=== PATIENT | female | born 1970 | race Caucasian/White ===

== ENCOUNTER 2016-04-07 18:42 | Emergency (ER) | payer OTHER ==
[2016-04-07 20:06] VITALS: BP 129/71
--- NOTE | 2016-04-07 21:22 | UC ---
Throat Pain/Nasal Shahriar HPI - HPI Summary HPI Summary: The patient comes in today for: 1. Burning in mouth and throat: Onset: 2 days ago with it worsening yesterday. Palliative/provocative: Worse with eating or drinking. Soda wagner. Quality: Burning. Region: Mouth. Severity: 5/10 Time: Constant. Associated symptoms: Previous disease: She has had this before about 2 years ago when she was only on Ventolin. She has been on Advair 500/50 for about a year. She states that she was previously treated with an antibiotic which she took every day. She is not immunesuppressed. * - History of Current Complaint Chief Complaint: UCGI Stated Complaint: THRUSH Time Seen by Provider: 04/07/16 21:16 Hx Obtained From: Patient Hx Last Menstrual Period: 03/20/15 ?: No - Allergies/Home Medications Allergies/Adverse Reactions: Allergies Allergy/AdvReac Type Severity Reaction Status Date / Time Bee Venom Allergy swelling, Verified 03/11/16 11:46 throat closes PMH/Surg Hx/FS Hx/Imm Hx Previously Healthy: No - Chronic low back pain on MS and oxycodone. Endocrine History Of: Denies: Diabetes, Thyroid Disease, Hyperthyroidism, Hypothyroidism, Dyslipidemia Cardiovascular History Of: Denies: Cardiac Disorders, Hypertension, Pacemaker/ICD, Myocardial Infarction , Congestive Heart Failure, Atrial Fibrillation, Deep Vein Thrombosis, Bleeding Disorders Respiratory History Of: Reports: COPD, Asthma - COLD INDUCED Denies: Bronchitis, Pneumonia, Pulmonary Embolism GI/ History Of: Denies: Gastroesophageal Reflux, Ulcer, Gastrointestinal Bleed, Gall Bladder Disease, Kidney Stones, Diverticulitis, Renal Disease, Urosepsis Neurological History Of: Denies: TIA, CVA, Dementia, Seizures, Migraine Psychological History Of: Reports: Anxiety, Depression, Bipolar Disorder Denies: Schizophrenia, Post Traumatic Stress Disorder Cancer History Of: Denies: Lung Cancer, Colorectal Cancer, Breast Cancer, Cervical Cancer Other History Of: Negative For: HIV, Hepatitis B, Hepatitis C, Anticoagulant Therapy - Surgical History Surgical History: Yes Surgery Procedure, Year, and Place: HERNIA- A CHILD, TUBAL LIGATION. rt CARPAL TUNNEL - Family History Known Family History: Positive: Cardiac Disease, Hypertension, Diabetes - Social History Occupation: Employed Full-time Alcohol Use: None Substance Use Type: None Smoking Status (MU): Light Every Day Tobacco Smoker Type: Cigarettes Amount Used/How Often: less than 1/2 ppd Length of Time of Smoking/Using Tobacco: 30 YEARS Have You Smoked in the Last Year: Yes Household Exposure Type: Cigarettes - Immunization History Most Recent Influenza Vaccination: 2015 fall Most Recent Tetanus Shot: up to date Review of Systems Constitutional: Negative Skin: Negative Eyes: Negative ENT: Sore Throat Respiratory: Negative Cardiovascular: Negative Gastrointestinal: Negative Genitourinary: Negative All Other Systems Reviewed And Are Negative: Yes Physical Exam Triage Information Reviewed: Yes Appearance: Well-Appearing, No Pain Distress, Well-Nourished Vital Signs: Initial Vital Signs Temp 96.0 F 04/07/16 20:03 Pulse 69 04/07/16 20:03 Resp 18 04/07/16 20:03 BP 129/71 04/07/16 20:03 Pulse Ox 99 04/07/16 20:03 Vital Signs Reviewed: Yes Eyes: Positive: Conjunctiva Clear. Negative: Discharge ENT: Positive: Hearing grossly normal, Other: - She is edentulous and there is no typical white, cake-like thrush. At worse, there may be the erythematous form, but the oral mucosa appeared normal.. Negative: Pharyngeal erythema, Nasal congestion, Nasal drainage, TM bulging, TM dull, TM red, Tonsillar swelling, Tonsillar exudate Dental: Negative: Gross Decay/Caries @, Dental Fracture @ Neck: Positive: Supple, Nontender, No Lymphadenopathy. Negative: Nuchal Rigidity Respiratory: Positive: Chest non-tender, Lungs clear, No respiratory distress, No accessory muscle use. Negative: Crackles, Wheezing Cardiovascular: Positive: RRR, No Murmur Abdomen Description: Positive: Nontender, No Organomegaly, Soft. Negative: Distended, Guarding Musculoskeletal: Positive: Strength Intact, ROM Intact, No Edema Neurological: Positive: Alert, Muscle Tone Normal. Negative: Lethargic Psychological: Positive: Age Appropriate Behavior, Consolable Skin: Negative: rashes, breakdown Throat Pain/Nasal Course/Dx - Differential Dx/Diagnosis Differential Diagnosis/HQI/PQRI: Laryngitis, Pharyngitis, Tonsillitis Provider Diagnoses: Erythematous john stomatitis Discharge - Discharge Plan Condition: Stable Disposition: HOME Patient Education Materials: Oral Candidiasis (ED) Referrals: Colby Hunter MD [Primary Care Provider] - 1 Week (Please see your primary care provider in a week to see how well you are doing. If you get worse, please be seen sooner in the ER or through us.)
[2016-04-07] MEDS ORDERED: Lidocaine 2% VISCOUS* 15 ML UDC SWISH SPIT ONE (21:32)
== END 2016-04-07 21:44 | disposition home or self-care (01) ==
LOC: UCEAST 18:42
DX: B37.0 Candidal stomatitis (principal); M54.5 Low back pain; G89.29 Other chronic pain; J44.9 Chronic obstructive pulmonary disease, unspecified; J45.909 Unspecified asthma, uncomplicated; F17.210 Nicotine dependence, cigarettes, uncomplicated
CPT/HCPCS: 99212; G0463

== ENCOUNTER → 2016-09-19 16:15 | Emergency (ER) | payer SELFPAY ==
[~2016-09-19 16:15] MED LIST: NS 0.9% 1000 ML* 1,000 ML IV SCH
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
[2016-09-19 21:18] VITALS: BP 128/80
== END | disposition home or self-care (01) ==
LOC: ED 16:15
DX: M54.5 Low back pain (principal); V89.2XXA Person injured in unspecified motor-vehicle accident, traffic, initial encounter; F17.210 Nicotine dependence, cigarettes, uncomplicated; Y93.9 Activity, unspecified; Y92.9 Unspecified place or not applicable
CPT/HCPCS: 70450; 71250; 72125; 72131; 74176; 96360; 99283

== ENCOUNTER 2016-10-05 19:43 | Emergency (ER) | payer OTHER ==
[2016-10-05 19:53] VITALS: BP 113/76
--- NOTE | 2016-10-05 21:33 | RAD ---
HISTORY: Left-sided neck pain COMPARISONS: CT dated September 19, 2016 VIEWS: 7, Frontal, swimmer's, lateral, open-mouth odontoid, and bilateral oblique views of the cervical spine. FINDINGS: The cervical spine is visualized from the skull base through T1. ALIGNMENT: There is straightening with mild reversal of the normal cervical lordosis. VERTEBRAL BODIES: The odontoid process is intact. The atlantoaxial intervals are symmetric. There is mild anterolateral marginal osteophyte formation. JOINTS: There is no subluxation or dislocation. The facet joints are unremarkable. There is no osseous neural foraminal narrowing on the oblique views INTERVERTEBRAL DISCS: There is diffuse loss of intervertebral disc height. SOFT TISSUE: The prevertebral soft tissues are normal. OTHER: The skull base is normal. The lung apices are clear. IMPRESSION: STRAIGHTENING WITH REVERSAL OF THE NORMAL CERVICAL LORDOSIS. MILD DEGENERATIVE DISC DISEASE. NO ACUTE OSSEOUS INJURY OF THE CERVICAL SPINE
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
== END 2016-10-05 21:45 | disposition home or self-care (01) ==
LOC: UCEAST 19:43
DX: S16.1XXA Strain of muscle, fascia and tendon at neck level, initial encounter (principal); V49.60XA Unspecified car occupant injured in collision with unspecified motor vehicles in traffic accident, initial encounter; Z91.030 Bee allergy status; F17.210 Nicotine dependence, cigarettes, uncomplicated
CPT/HCPCS: 72050; 99211; G0463

== ENCOUNTER 2017-01-20 17:47 | Emergency (ER) | payer OTHER ==
[2017-01-20 19:13] VITALS: BP 121/69
--- NOTE | 2017-01-20 20:12 | UC ---
Throat Pain/Nasal Shahriar HPI - HPI Summary HPI Summary: Pt presents with a hoarse voice. She tells me that 5 days ago she developed a mild ST and hoarse voice. She has been treating herself conservatively with voice rest and fluids. Today she says that her throat doesn't hurt, but her hoarseness has only mildly improved. She denies fever, chills, cough, SOB, chest pain, abdominal pain, N/V/D/C - History of Current Complaint Chief Complaint: UCRespiratory Stated Complaint: THROAT Time Seen by Provider: 01/20/17 20:02 Hx Obtained From: Patient Hx Last Menstrual Period: AUGUST 2016 Onset/Duration: Gradual Onset - Allergies/Home Medications Allergies/Adverse Reactions: Allergies Allergy/AdvReac Type Severity Reaction Status Date / Time Bee Venom Allergy swelling, Verified 01/20/17 19:13 throat closes Home Medications: Home Medications Albuterol 2.5MG/3ML (0.083%)* [Ventolin 2.5 MG/3 ML NEB.KARINA*] PRN 01/20/17 [ History] Albuterol HFA INHALER* [Ventolin HFA Inhaler*] PRN 01/20/17 [History] Antidepressant* 1 tab PO DAILY 01/20/17 [History Confirmed 01/20/17] Antidepressant* 1 tab PO DAILY 01/20/17 [History Confirmed 01/20/17] Cholecalciferol [Vitamin D] 2,000 unit PO DAILY 01/20/17 [History Confirmed 12/27] Methotrexate TAB* 01/20/17 [History] guaiFENesin ER TAB [Mucinex*] PRN 01/20/17 [History] tiZANidine TAB* [Zanaflex TAB*] PRN 01/20/17 [History Confirmed 01/20/17] PMH/Surg Hx/FS Hx/Imm Hx - Additional Past Medical History Additional PMH: Chronic Pain Respiratory History: COPD Other History Of: Negative For: HIV, Hepatitis B, Hepatitis C, Anticoagulant Therapy - Surgical History Surgical History: Yes Surgery Procedure, Year, and Place: HERNIA- A CHILD, TUBAL LIGATION. rt CARPAL TUNNEL - Family History Known Family History: Positive: Cardiac Disease, Hypertension, Diabetes - Social History Occupation: Employed Full-time Lives: With Family Alcohol Use: None Substance Use Type: None Smoking Status (MU): Current Every Day Smoker Type: Cigarettes Amount Used/How Often: 1/4 PPD Length of Time of Smoking/Using Tobacco: 30 YEARS Have You Smoked in the Last Year: Yes Household Exposure Type: Cigarettes Cessation Counseling: Counseled 3+Min - 10 Min - Immunization History Most Recent Influenza Vaccination: fall Most Recent Tetanus Shot: up to date Review of Systems Constitutional: Negative Skin: Negative Eyes: Negative ENT: Other - Hoarseness Respiratory: Negative Cardiovascular: Negative All Other Systems Reviewed And Are Negative: Yes Physical Exam Triage Information Reviewed: Yes Appearance: Well-Appearing, Well-Nourished Vital Signs: Initial Vital Signs Temp 98.1 F 01/20/17 19:09 Pulse 76 01/20/17 19:09 Resp 16 01/20/17 19:09 BP 121/69 01/20/17 19:09 Pulse Ox 100 01/20/17 19:09 Vital Signs Reviewed: Yes ENT: Positive: Hearing grossly normal, Pharynx normal, TMs normal, Hoarse voice , Uvula midline. Negative: Pharyngeal erythema, Nasal congestion, Nasal drainage, TM bulging, TM dull, TM red, Tonsillar swelling, Tonsillar exudate, Muffled voice, Sinus tenderness Neck: Positive: Supple, Nontender, No Lymphadenopathy Respiratory: Positive: Chest non-tender, Lungs clear, Normal breath sounds, No respiratory distress, No accessory muscle use Cardiovascular: Positive: RRR, No Murmur, Pulses Normal Neurological: Positive: Alert Psychological: Positive: Age Appropriate Behavior Throat Pain/Nasal Course/Dx - Course Course Of Treatment: Laryngitis. 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 There has been some evidence that antibiotic therapy and/or steroid therapy may shorten the course of hoarseness - in addition to voice rest. Will try a short course of prednisone and advise as much voice rest as possible. - Differential Dx/Diagnosis Differential Diagnosis/HQI/PQRI: Laryngitis, Mononucleosis, Pharyngitis, Tonsillitis, URI Provider Diagnoses: Laryngitis. Hoarseness Discharge - Discharge Plan Condition: Stable Disposition: HOME Prescriptions: predniSONE TAB* [Deltasone TAB*] 30 mg PO DAILY #12 tab Patient Education Materials: Laryngitis (ED) Referrals: Colby Hunter MD [Primary Care Provider] - Additional Instructions: If you develop a fever, SOB, chest pain, new or worsening symptoms - please call your PCP or go to the ED. Try salt water gargles and tea with honey to soothe your throat and help with any discomfort.
== END 2017-01-20 20:23 | disposition home or self-care (01) ==
LOC: UCEAST 17:47
DX: J04.0 Acute laryngitis (principal); J44.9 Chronic obstructive pulmonary disease, unspecified; F17.210 Nicotine dependence, cigarettes, uncomplicated
CPT/HCPCS: 99212; G0463

== ENCOUNTER 2017-03-22 00:50 | Emergency (ER) | payer OTHER ==
--- OUTSIDE RECORDS SUMMARY | 2017-03-22 01:15 | XMS REPORT ---
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 Coty Oliver [facility] (O) Ind. PayID: [id number] [address] [address] [place] [address] Problems Date Description Provider Status Onset: 03/18/2016 Heavy cigarette smoker Manuel Carpenter RPA-C Active Onset: 03/18/2016 Moderate persistent asthma Manuel Carpenter RPA-C Active Onset: 03/18/2016 Allergic rhinitis Manuel Carpenter RPA-C Active Onset: 03/18/2016 Allergic rhinitis due to pollen Manuel Carpenter RPA-C Active Social History Type Date Description Comments Cigarette Use Light tobacco smoker (10 or fewer cigarettes/day) Smoking Patient is a current smoker, smokes every day 1 ppd Allergies, Adverse Reactions, Alerts Date Description Reaction Status Severity Comments 03/21/2017 NKDA active Medications Medication Date Status Form Strength Qnty SIG Indications Ordering Provider Albuterol 04/15 Active Nebulizer (2.5mg/3M 225ml 1 vial every Christopher Sulfate /2016 L) 0.083% 4h as needed Yang Judd MD Ventolin HFA 03/18 Active Aerosol 108(90Bas 8gm inhale 2 J45.40 Jayden /Sebastian e) puffs by ALINE Jackson mcg/Act inhalation route every 4 hours as needed Azelastine 03/18 Active Solution 0.15% 30ml 2 sprays J30. Jayden, COLBY (Nasal) each nostril ALINE Jackson once daily Fluticasone 03/18 Active Suspension 50mcg/Act 1unit spray 2 J30. Jayden, Propionate s sprays in ALINE Jackson each nostril daily immediately after azelastine nasal spray Cetirizine 03/18 Active Tablets 10mg 30tab 1 tab by Tomi30COLBY Kebede s mouth once ALINE Jackson daily as needed Zyrtec 02/06 Active Tablets 10mg 30tab Take 1 Jayden, Allergy s Tablet By ALINE Jackson Mouth Every Evening Morphine Active Tablets ER 15mg tid Unknown Sulfate ER / Epipen 2-Juan Active Solution 0.3mg/0.3 as directed Unknown Auto-Inject ML Trazodone Active Tablets 150mg take 1 Unknown HCL /0000 tablet by oral route 3 times a day Ambien Active Tablets 10mg 1 tab at Unknown /0000 night prn Oxycodone Active Tablets 10mg take 1 Unknown HCL /0000 tablet (10 mg) by oral route every 6 hours Meclizine Active Tablets 25mg 1 tab 3x a Unknown HCL /0000 day PO prn Tizanidine Active Capsules 6mg Unknown HCL /0000 Ventolin HFA 02/07 Hx Aerosol 108(90Bas 8gm Inhale 2 e) Puffs By Yang Judd MD - mcg/Act Mouth Every 03/18 4 Hours Needed Epipen 2-Juan 08/29 Hx Solution 0.3mg/0.3 inject 0.3 Auto-Inject ML milliliter - (0.3 mg) by 03/18 intramuscula r route once as needed for anaphylaxis for 99 days Fluticasone 08/29 Hx Suspension 50mcg/Act spray 2 Unknown sprays (100 - mcg) in each 03/18 nostril intranasal route once daily Latuda 00 Hx Tablets 40mg take 1 Unknown /0000 tablet by - oral route 03/18 Lorzone Hx Tablets 375mg take 1 Unknown /0000 tablet by - oral route 2 03/21 times a day /2018 Vital Signs Date Vital Result Comment 03/21/2017 BP Systolic 114 mmHg BP Diastolic 79 mmHg Height 65 inches 5'5" Weight 163.00 lb BMI (Body Mass Index) 27.1 kg/m2 Heart Rate 101 /min Respiratory Rate 22 /min Body Temperature 98.5 F O2 % BldC Oximetry 98 % 03/18/2016 BP Systolic 118 mmHg BP Diastolic 78 mmHg Height 65 inches 5'5" Weight 159.00 lb BMI (Body Mass Index) 26.5 kg/m2 Heart Rate 96 /min Respiratory Rate 16 /min Body Temperature 98.3 F O2 % BldC Oximetry 96 % Results Description No Information Procedures Date CPT Code Description Status 03/18/2016 44339 Nitric Oxide Gas Determination Completed 03/18/2016 74813 Bronchodilation Responsiveness Spirometry Pre/Post Completed Bronchodil Adm Encounters Type Date Location Provider CPT E/M Dx Office Visit 03/18/2016 10:30a aMnuel Cronin, RPA-C 88235 J45.40 J30.1 J30.89 Z72.0 Plan of Care 03/18/2016 - Manuel Carpenter, JAYJAY-CJ45.40 Moderate persistent asthma, uncomplicatedNew Medication:Ventolin HFA 108(90 Base) mcg/ActComments:Continue Advair from PCP as directed. Use Ventoln as needed.Quit smoking.J30.1 Allergic rhinitis due to smsuzlP30.89 Other allergic rhinitisNew Medication:Azelastine HCL (Nasal) 0.15 %Fluticasone Propionate 50 mcg/ActCetirizine HCL 10 mgComments: Continue all prescribed medications as directed. Use the azelastine nasal spray immediately before the fluticasone nasal spray every evening.Z72.0 Tobacco useComments:Make every effort to quit smoking.Follow up:1 year, sooner as needed
--- OUTSIDE RECORDS SUMMARY | 2017-03-22 01:15 | XMS REPORT ---
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 PayID: [id number] [address] [address] [place] [address] Problems Date Description Provider Status Onset: 03/21/2017 Posterior rhinorrhea Joceline Henderson Onset: 03/18/2016 Heavy cigarette smoker Manuel Carpenter [...] (2.5mg/3M 225ml 1 vial every Christopher Sulfate /2017 L) 0.083% 4h as needed Yang Judd MD Ventolin HFA 03/18 Active Aerosol 108(90Bas 18gm Inhale 2 J45.40 Christopher /2017 e) puffs by Yang Judd MD mcg/Act inhalation route Q4 hours as needed Azelastine 03/18 Active Solution 0.15% 30ml 2 sprays J30. COLBY Carpenter (Nasal) each nostril ALINE Jackson once daily Fluticasone 03/18 Active Suspension 50mcg/Act 1unit spray 2 J30. Jayden Propionate s sprays in ALINE Jackson each nostril daily immediately after azelastine nasal spray Cetirizine 03/18 Active Tablets 10mg 30tab 1 tab by J30.COLBY Lewis s mouth once ALINE Jackson daily as needed Zyrtec 02/06 Active Tablets 10mg 30tab Take 1 Jayden s Tablet By ALINE Jackson Mouth Every Evening Morphine 00 Active Tablets ER 15mg tid Unknown Sulfate ER / Epipen 2-Juan Active Solution 0.3mg/0.3 as directed Auto-Inject ML Trazodone Active Tablets 150mg take 1 Unknown HCL /0000 tablet by oral route 3 times a day Ambien 00 Active Tablets 10mg 1 tab at Unknown [...] 03/18 nostril intranasal route once daily Latuda Hx Tablets 40mg take 1 Unknown /0000 tablet by - oral route 03/18 Lorzone Hx Tablets 375mg take 1 Unknown /0000 tablet by - oral route 2 03/21 times a day Vital Signs Date Vital Result Comment 03/21/2017 [...] Information Procedures Date CPT Code Description Status 03/21/2017 61291 Nitric Oxide Gas Determination Completed 03/21/2017 41539 Bronchodilation Responsiveness Spirometry Pre/Post Completed Bronchodil Adm 03/18/2016 78744 Nitric Oxide Gas Determination Completed 03/18/2016 09686 Bronchodilation Responsiveness Spirometry Pre/Post Completed Bronchodil Adm Encounters Type Date Location Provider CPT E/M Dx Office Visit 03/21/2017 10:00a Morrice ALINE Henderson 61261 J30.1 J30.89 R09.82 J45.40 Office Visit 03/18/2016 10:30a Manuel Cronin RPA-C 68854 J45.40 J30.1 J30.89 Z72.0 Plan of Care Future Appointment(s):03/28/2017 10:00 am - Injection 1 at [facility]/19/2017 10: 00 am - ALINE Henderson at [facility]/21/2017 - Marianne Baron RPA-CJ30.1 Allergic rhinitis due to pollenComments:Patient with poorly controlled allergic rhinitis and post nasal drip. I have discussed the importance of using allergy medications daily. I agree with current treatment plan of Fluticasone, Azelastine and Cetirizine as prescribed by her primary. I have discussed the potential risks, benefits and schedule requirements of immunotherapy and patient would like to pursue this treatment option. Continue medications as prescribed. Continue environmental controls in the home. Initial allergy injection scheduled for 03/28/2017.Follow up:6 months.J30.89 Other allergic nnduhkwoO92.82 Postnasal dripJ45.40 Moderate persistent asthma, uncomplicatedComments:Asthma has been stable. Today's PFT is within normal limits. Exhaled nitric oxide level is also normal at 19ppb. Patient was recently switched from Advair to Breo due to insurance denial. Continue Yleu151/ 25 as prescribed. Continue Ventolin as needed for breakthrough asthma symptoms. I have discussedthe importance of smoking cessation, especially when you have asthma. Patient states she has a lot of stress and is not ready to quit at this time.Follow up:6 months - w/PFT and NIOX prior to visit
[2017-03-22] MEDS ORDERED: Methocarbamol TAB* 500 MG PO ONE (01:18)
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
[2017-03-22 01:41] VITALS: BP 106/81
== END 2017-03-22 01:41 | disposition home or self-care (01) ==
LOC: ED 00:50
DX: M54.2 Cervicalgia (principal); G89.29 Other chronic pain; M79.1 Myalgia; F17.210 Nicotine dependence, cigarettes, uncomplicated
CPT/HCPCS: 99282; A9270-GY

== ENCOUNTER 2018-12-28 08:42 | Day surgery (SDC) | payer OTHER ==
[~2018-12-28 08:42] MED LIST changes: +Buffered Lidocaine 1% SYRIN* 1 ML/SYRINGE INTRADERM ONE; +Dexamethasone IV* 4 MG/ML 1 ML (4 MG) IV SLOW PU ONE; +Dexamethasone IV* 4 MG/ML 1 ML (4 MG) ONE; +Famotidine IV* 10 MG/ML 2 ML (20 mg) IV ONE; +Famotidine IV* 10 MG/ML 2 ML (20 mg) ONE; +Lactated Ringers 1000 ML Bag* 1,000 ML IV SCH; -NS 0.9% 1000 ML* 1,000 ML IV SCH
[2018-12-28] MEDS ORDERED: ceFAZolin 2 GM PREMIX in ORs 2 GM/50 ML BAG ONE (08:53)
[2018-12-28] MEDS ORDERED: Ropivacaine 0.2% * 2 MG/ML VIAL ONE (09:36)
[2018-12-28] MEDS ORDERED: Lidocaine 1% w EPI 1:200,000* SDV 30 ML VIAL ONE (09:36)
[2018-12-28] MEDS ORDERED: fentaNYL* 50 MCG/ML 2 ML VIAL (100 MCG VIAL) ONE (09:39)
[2018-12-28] MEDS ORDERED: Midazolam* 1 MG/ML 2 ML VIAL (2 MG) ONE (09:39)
[2018-12-28] MEDS ORDERED: Propofol* 10 MG/ML 20 ML BTL ONE (09:40)
[2018-12-28] MEDS ORDERED: Lidocaine 2% PF * 5 ML VIAL ONE (09:41)
[2018-12-28] MEDS ORDERED: Ketorolac INJ* 30 MG/ML 1 ML VIAL ONE (10:23)
[2018-12-28] MEDS ORDERED: Ondansetron INJ* 2 MG/ML VIAL ONE (10:23)
[2018-12-28 11:49] VITALS: BP 123/76
--- NOTE | 2018-12-28 15:26 | OP ---
DATE OF OPERATION: 12/28/18 [facility] DATE OF : 72 SURGEON: Cornel Gomez MD PIT RECORDER: None available. PRE-OP DIAGNOSIS: Left knee chondrosis with synovitis. POST-OP DIAGNOSES: 1. Left knee chondrosis with synovitis. 2. Lateral meniscal fraying. OPERATIVE PROCEDURE: Left knee arthroscopy with: 1. Partial lateral meniscectomy. 2. Synovectomy of the anterior, medial, and lateral compartments. 3. Chondroplasty of the patella. COMPLICATIONS: None. ESTIMATED BLOOD LOSS: Minimal. TOURNIQUET TIME: Zero minutes. INDICATIONS: Coty Garay is a 48-year-old female with left knee pain and stiffness refractory to conservative management. She has elected to proceed with surgical treatment. Risks and benefits were discussed at length which included but are not limited to bleeding; infection; damage to nerves, vessels, surrounding structures; wound nonhealing; persistent pain; need for further surgery; scarring; stiffness; incomplete relief of symptoms; risks of anesthesia. DESCRIPTION OF PROCEDURE: The patient was greeted in the preoperative area by the attending surgeon. Correct extremity was marked. Consent was confirmed. The patient was brought back to the operating suite and was placed in the supine position on the operating table. She then underwent general anesthesia and LMA intubation, after which she was appropriately positioned on the operating table where a lateral post was positioned. An unsterile tourniquet was placed high on the proximal thigh. The left leg was then prepped and draped in the usual sterile fashion beginning with chlorhexidine soap, scrub, and alcohol wipe, and a final prep with ChloraPrep. After appropriate surgical pause indicating side, site, procedure, and administration of antibiotics, the knee was intra-articularly injected with 1% lidocaine with epi. The anterolateral portal was made sharply with an 11- blade. The scope was introduced into the joint and the joint was examined. There was abundant synovitis that was present. There were bands of scar tissue and plica spanning the medial to lateral and inferiorly about the prepatellar area. The bashir and biters were actually used to debride this back. There were discrete layers where this was present. Electrocautery device was used to maintain hemostasis. The ACL and PCL were intact. The medial compartment was examined. The medial meniscus was intact. The medial femoral condyle and medial plateau in the weightbearing zone had grade 0 to 1 changes. There was a small focal defect in the medial condyle that was present in extension that was about 3 mm x 3 mm. There was a grade 2 to 3 lesion. The flaps were debrided slightly. The lateral compartment had similar area of chondrosis on the far lateral aspect with grade 2 changes, but the rest of the condyle had grade 0 to 1 changes. The lateral compartment was examined. There was an unstable flap about the posterior root. This was debrided back using the shaver. The remainder of the meniscus was intact. The knee was placed in full extension. There were areas of grade 2 changes in the medial aspect of the patella. The trochlea had 0 to 1 changes. The bashir were used to debride this back. The plica and synovitis were then removed with the bashir and the electrocautery device to maintain hemostasis. The gutters were able to be visualized and free of any loose debris. The wound was then thoroughly irrigated. Final images were obtained. The wounds were copiously irrigated with sterile saline. The portals were closed with 3-0 nylon. The wound was intra- articularly and superficially injected with 0.2% ropivacaine. Sterile dressings were applied as well as a Cryo/Cuff. She was awoken from anesthesia and transferred to the PACU in stable condition. POSTOPERATIVE PLAN: She will be weightbearing as tolerated. Range of motion as tolerated. Discharged on pain medication. DVT prophylaxis was considered, but deferred due to no previous personal or family history. I will see the patient back in 10 to 14 days. [id number]/[facility] #: [id number] MIGUEL ANGEL
== END 2018-12-28 11:34 | disposition home or self-care (01) ==
LOC: OREAST 08:42
PROVIDERS: ATTEND Orthopaedic Surgery
DX: M65.862 Other synovitis and tenosynovitis, left lower leg (principal); M22.42 Chondromalacia patellae, left knee; M17.12 Unilateral primary osteoarthritis, left knee; J44.9 Chronic obstructive pulmonary disease, unspecified; F32.9 Major depressive disorder, single episode, unspecified; F41.9 Anxiety disorder, unspecified; M79.7 Fibromyalgia; G43.909 Migraine, unspecified, not intractable, without status migrainosus; F17.210 Nicotine dependence, cigarettes, uncomplicated
CPT/HCPCS: J0690; J1100; J1885; J2001; J2250; J2405; J2704; J2795; J3010

== ENCOUNTER 2019-05-22 09:46 | Emergency (ER) | payer SELFPAY ==
--- OUTSIDE RECORDS SUMMARY | 2019-05-22 10:04 | XMS REPORT | Continuity of Care Document ---
:1970 External Reference #:[id number] Author Name Joe Tan MD (transmitted by agent of provider Conchis Soto) Address [address] [place] [address] Care Team Providers Name Role Phone Session Juan Alberto DILLARD Care Team Information Perfumer [phone] Problems Active Problems Provider Date Hypertrophy of nasal turbinates Joe Tan MD Onset: 12/10/2010 Dysfunction of eustachian tube Joe Tan MD Onset: 12/10/2010 Social History Type Date Description Comments Sex Unknown Tobacco Use Start: Unknown Current Cigarette Smoker 1/2 Pack for 28 years Daily Tobacco Use Start: Unknown Never Smoked Cigars Tobacco Use Start: Unknown Never Smoked A Pipe Smokeless Tobacco Never Used Smokeless Tobacco ETOH Use Currently rarely consumes alcohol Allergies, Adverse Reactions, Alerts Description No Known Drug Allergies Medications Active Medications SIG Qnty Indications Ordering Provider Date Ventolin HFA 1-2 puffs every 2units Unknown 4 hours as 108(90Base) mcg/ac needed for Aerosol shortness of breathe use with spacer Duloxetine HCL Once a day Tacos Bean M.D. 30mg Caps DR Aki HERNANDEZ, Marianne 200-25mcg/Inh Aerosol Gabapentin Colby Hunter, 600mg MJustinoDJustino Tablets Morphine Sulfate ER Take One Tablet Unknown By Mouth Every 30mg Tablets ER 12 Hours Maximum Daily Dose 2 Meloxicam Take One Tablet Unknown 7.5mg By Mouth Every Tablets Day Albuterol Sulfate Use 1 Vial Every Unknown 4 Hours as (2.5mg/3ML) 0.083% Needed Nebulizer Diclofenac Sodium Unknown 1% Gel Zyrtec Allergy 1 by mouth every Unknown 10mg night at bedtime Capsules Immunizations Description No Information Available Vital Signs Date Vital Result Comment 04/26/2019 10:24am Weight 160.00 lb Weight 72.576 kg Height 64.50 inches 5'4.50" Height in cm's 163.8 cm BMI (Body Mass Index) 27.0 kg/m2 Neck Circumference in inches 14.0 Neck Circumference in cm 35.6 cm Results Description No Information Available Procedures Description No Information Available Medical Devices Description No Information Available Encounters Description No Information Available Assessments Description No Information Available Plan of Treatment 12/07/2010 - Joe Tan MD478.0 Hypertrophy, Nasal TurbinatesComments: Patient with findings of eustachian tube dysfunction symptoms without any objective evidence of hearing loss, hypertrophied turbinates without any evidence of nasal polyps reassured recheck p.[id number] Dysfunction Of Eustachian Tube Functional Status Description No Information Available Mental Status Description No Information Available Referrals Description No Information Available
--- OUTSIDE RECORDS SUMMARY | 2019-05-22 10:04 | XMS REPORT | Continuity of Care Document ---
:1970 External Reference #:[id number] Author Name Mickey Kelly MD (transmitted by agent of provider Margot Zuniga) Address [address] [place] [address] Care Team Providers Name Role Phone [facility] - Care Team Information Steam Service Inspector [phone] Family Medicine Problems Active Problems Provider Date Bipolar disorder Irma Mireles M.D. Onset: 04/24/2015 Localized, primary osteoarthritis Irma Mireles M.D. Onset: 05/10/2015 Cervical spondylosis without myelopathy Russell Crespo M.D. Onset: 11/22/2016 Urinary incontinence Vu Bean M.D. Onset: 06/26/2017 Low back pain Vu Bean M.D. Onset: 06/26/2017 Skin sensation disturbance Vu Bean M.D. Onset: 10/06/2017 Amnesia Vu Bean M.D. Onset: 10/06/2017 Chronic fatigue syndrome Vu Bean M.D. Onset: 10/06/2017 Neck pain Vu Bean M.D. Onset: 12/04/2017 Sprain of ankle Cornel Gomez MD Onset: 08/27/2018 Disorder of shoulder Cornel Gomez MD Onset: 10/13/2018 Knee joint effusion Cornel Gomez MD Onset: 10/13/2018 Psoriasis Vu Bean M.D. Onset: 12/11/2018 Dizziness and giddiness Vu Bean M.D. Onset: 12/11/2018 Current tear of lateral cartilage AND/OR Cornel Gomez MD Onset: 01/12/2019 meniscus of knee Chondromalacia of patella Cornel Gomez MD Onset: 01/12/2019 Current tear of medial cartilage AND/OR Arley Arthur MD Onset: 03/31/2019 meniscus of knee Social History Type Date Description Comments Sex Unknown Tobacco Use Start: Unknown current cigarette smoker ETOH Use Denies alcohol use Recreational Drug Use Former Drug User Tobacco Use Start: Unknown Light tobacco smoker (10 or fewer cigarettes/day) Recreational Drug Use Formerly used Cocaine sporadically Recreational Drug Use Formerly used Crack Cocaine sporadically Recreational Drug Use when she was 16 Smoking Status Reviewed: 04/13/19 Light tobacco smoker (10 or fewer cigarettes/day) Exercise Type/Frequency Does not exercise Allergies, Adverse Reactions, Alerts Active Allergies Reaction Severity Comments Date NKDA 07/19/2013 Bee Stings 07/21/2008 Medications Active Medications SIG Qnty Indications Ordering Provider Date Diclofenac Sodium apply 1 gram to 300gm Shanna Douglass, 03/29/2019 affected area 3- 4 M.D. 1% Gel times a day Mobic 1 by mouth every day 30tabs Shanna Douglass, 03/11/2019 7.5mg M.D. Tablets Meclizine HCL 1 tab every 12 hours 30tabs Vu Bean, 02/19/2019 as needed for M.D. 25mg Tablets dizziness Duloxetine HCL 1 by mouth once a day 90caps R20.2 Noam Arriaga, [address] Aki Jay use for ambulation M25.461 Irma Mireles, 05/10/2015 M.D. Fluticasone daily Unknown Propionate 50mcg/Act Suspension Albuterol Sulfate Dutch, MD Vu (2.5mg/3ML) 0.083% Nebulizer Ventolin HFA Unknown 108(90Base) mcg/Act Aerosol Neurontin 2 tabs three times a Unknown 600mg day Tablets Breo Ellipta one inhale twice Unknown daily 200-25mcg/Inh Aerosol Humira Pen-PS/Uv Inject 2 Pens Unknown Starter Subcutaneously On Day 1 Then 1 Pen On Day 40mg/0.8ML PNKT 8 And 1 Pen E Morphine Sulfate Take One Tablet By Unknown ER Mouth Every 12 Hours 30mg Tablets Max 2 Daily ER History Medications Methylprednisolone 6 by mouth 21units S83.282D Cornel Gomez, 02/18/2019 - 4mg TBPK day 1, 5 by 03/10/2019 mouth day 2, 4 by mouth day 3, 3 by mouth day 4, 2 by mouth day 5, 1 by mouth day 6 Oxycodone HCL 1 tabs by 24taarturo Gomez, 12/28/2018 - 5mg Tablets mouth every MD 01/12/2019 4-6 hours as needed Cephalexin take 1 by 12taarturo Gomez, 12/28/2018 - 500mg Tablets mouth four MD 01/12/2019 times a day x 3 days Medications Administered in Office Medication SIG Qnty Indications Ordering Provider Date Celestone 3 mg and 3mg Mickey Kelly MD 04/13/2019 Injection Triamcinolone (Kenalog) Cornel Gomez MD 10/30/2018 Injection Records Fee Cornel Gomez MD 10/08/2018 Injection Triamcinolone (Kenalog) Chrissy Sexton PA-C 06/05/2018 Injection Immunizations CPT Code Status Date Vaccine Lot # 30655 Given 12/21/2008 Influenza Virus Vaccine, Pandemic Formulation [id number] Given 12/21/2008 Administration Swine Flu Shot Vital Signs Date Vital Result Comment 04/13/2019 9:13am Height 64 inches 5'4" Weight 150.00 lb Heart Rate 94 /min BP Systolic Sitting 108 mmHg BP Diastolic Sitting 72 mmHg Respiratory Rate 18 /min Pain Level 8 O2 % BldC Oximetry 97 % BMI (Body Mass Index) 25.7 kg/m2 03/31/2019 9:02am Height 64 inches 5'4" Weight 150.00 lb Heart Rate 43 /min BP Systolic 100 mmHg BP Diastolic 62 mmHg Respiratory Rate 16 /min Pain Level 8 BMI (Body Mass Index) 25.7 kg/m2 Results Description No Information Available Procedures Date Code Description Status 04/13/2019 Inject/Drain Joint/Bursa Major W/O US Completed 12/28/2018 43539 Arthroscopy,Knee,Meniscectomy Medial Or Lateral Completed 12/28/2018 49023 Arthroscopy,Knee, Synovectomy Plica Or Shelf Resect Completed 10/30/201806569 Inject/Drain Joint/Bursa Major W/O US Completed Medical Devices Description No Information Available Encounters Type Date Location Provider Dx Diagnosis Office Visit 04/13/2019 [facility] Mickey Kelly, S46.012A Strain of 9:00a at [place] musc/tend the rotator cuff of left shoulder, init M65.812 Other synovitis and tenosynovitis, left shoulder M25.512 Pain in left shoulder Office Visit 03/31/2019 9:00a [facility] Arleyenrrique Arthur, S83.282A Oth tear of at [place] lat mensc, current injury, left knee, init S83.222A Prph tear of medial meniscus, current injury, l knee, init M25.562 Pain in left knee Office Visit 03/29/2019 [facility] Sherry M18.0 Bilateral primary 1:00p Orthoped[facility] at [facility] RPA-C osteoarth of first [place] carpometacarp joints Office Visit 03/11/2019 [facility] Sherry M18.0 Bilateral [facility] 1:45p [facility] [place] carpometacarp joints Office Visit 02/08/2019 [facility] Venancio Gonzales, L30.9 Dermatitis, 2:20p unspecified L40.0 Psoriasis vulgaris Office Visit 12/11/2018 3:15p [facility] Vu Bean M54.2 [facility] M54.5 Low back pain L40.0 Psoriasis vulgaris R42 Dizziness and giddiness Office Visit 11/20/2018 9:30a [facility] Cornel Gomez, M25.462 Effusion, left at [place] knee M22.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, left knee Office Visit 10/30/2018 [facility] Cornel Gomez, M17.12 Unilateral primary 11:30a Orthopedics at osteoarthritis, left [place] knee M25.462 Effusion, left knee Assessments Date Code Description Provider 04/13/2019 S46.012A Strain of muscle(s) and tendon(s) of the Mickey Kelly MD rotator cuff of left shoulder, initial encounter 04/13/2019 M65.812 Other synovitis and tenosynovitis, left Mickey Kelly MD shoulder 04/13/2019 M25.512 Pain in left shoulder Mickey Kelly MD 03/31/2019 S83.282A Other tear of lateral meniscus, current Arley Arthur MD injury, left knee, initial encounter 03/31/2019 S83.222A Peripheral tear of medial meniscus, Arley Arthur MD current injury, left knee, initial encounter 03/31/2019 M25.562 Pain in left knee Arley Arthur MD 03/29/2019 M18.0 Bilateral primary osteoarthritis of first [place] Bitting, RPA-C carpometacarpal joints 03/25/2019 S83.282D Other tear of lateral meniscus, current Cornel Gomez MD injury, left knee, subsequent encounter 03/25/2019 M22.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, left knee Cornel Gomez MD 03/11/2019 M18.0 Bilateral primary osteoarthritis of first [place] Bitting, RPA-C carpometacarpal joints 03/05/2019 S83.282D Other tear of lateral meniscus, current Chrissy Sexton PA-C injury, left knee, subsequent encounter 03/05/2019 M22.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, left knee Chrissy Sexton PA-C 02/18/2019 S83.282D Other tear of lateral meniscus, current Cornel Gomez MD injury, left knee, subsequent encounter 02/18/2019 M22.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, left knee Cornel Gomez MD 02/08/2019 L30.9 Dermatitis, unspecified Venancio Gonzales MD 02/08/2019 L40.0 Psoriasis vulgaris Venancio Gonzales MD 01/12/2019 S83.282D Other tear of lateral meniscus, current Cornel Gomez MD injury, left knee, subsequent encounter 01/12/2019 M22.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, left knee Cornel Gomez MD 12/28/2018 S83.282A Other tear of lateral meniscus, current Cornel Gomez MD injury, left knee, initial encounter 12/28/2018 M22.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, left knee Cornel Gomez MD 12/28/2018 M65.862 Other synovitis and tenosynovitis, left Cornel Gomez MD lower leg 12/17/2018 M17.12 Unilateral primary osteoarthritis, left Cornel Gomez MD knee 12/17/2018 M22.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, left knee Cornel Gomez MD 12/11/2018 M54.2 Cervicalgia Vu Bean M.D. 12/11/2018 M54.5 Low back pain Vu Bean M.D. 12/11/2018 L40.0 Psoriasis vulgaris Vu Bean M.D. 12/11/2018 R42 Dizziness and giddiness Vu Bean M.D. 11/20/2018 M25.462 Effusion, left knee Cornel Gomez MD 11/20/2018 M22.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, left knee Cornel Gomez MD 10/30/2018 M17.12 Unilateral primary osteoarthritis, left Cornel Gomez MD knee 10/30/2018 M25.462 Effusion, left knee Cornel Gomez MD Plan of Treatment Future Appointment(s):05/11/2019 2:15 pm - Mickey Kelly MD at [facility] at Vqyzew9306/28/2019 11:30 am - Arley Arthur MD at [facility] at Uqnhzi0405/10/2019 1:00 pm - Shanna Douglass M.D. at [facility] at Ztpqjd7004/13/2019 - Mickey Kelly, MDS46.012A Strain of muscle(s ) and tendon(s) of the rotator cuff of left shoulder, initial encounterNew Therapy:Physical TherapyFollow up:Follow up: 6 weeks after MRIM65.812 Other synovitis and tenosynovitis, left rivkoewqV61.512 Pain in left shoulder Functional Status Description No Information Available Mental Status Description No Information Available Referrals Description No Information Available
--- OUTSIDE RECORDS SUMMARY | 2019-05-22 10:04 | XMS REPORT | Continuity of Care Document ---
:1970 External Reference #:[id number] Author Name Mickey Kelly MD (transmitted by agent of provider Santa Asencio) Address [address] [place] [address] Care Team Providers Name Role Phone [facility] - Care Team Information Card Writer Hand [phone] Family Medicine Problems Active Problems Provider Date [...] Medication SIG Qnty Indications Ordering Provider Date Triamcinolone (Kenalog) Cornel oGmez MD 10/30/2018 Injection Records Fee Cornel Gomez MD 10/08/2018 Injection Triamcinolone (Kenalog) Chrissy Sexton PA-C 06/05/2018 Injection Immunizations CPT Code Status Date Vaccine Lot # [id number] Given 12/21/2008 Influenza Virus Vaccine, Pandemic Formulation [id number] Given 12/21/2008 Administration Swine Flu Shot Vital [...] Information Available Procedures Date Code Description Status 04/13/201949416 Inject/Drain Joint/Bursa Major W/O US Completed 12/28/2018 24366 Arthroscopy,Knee,Meniscectomy Medial Or Lateral Completed 12/28/2018 72668 Arthroscopy,Knee, Synovectomy Plica Or Shelf Resect Completed 10/30/2018 91081 Inject/Drain Joint/Bursa Major W/O US Completed Medical Devices Description No Information Available Encounters Type Date Location Provider Dx Diagnosis Office Visit 04/13/2019 [facility] Mickey Kelly, S46.012A Strain of 9:00a at [place] musc/tend the rotator cuff of left shoulder, init [facility] [facility] S[facility]A Oth tear of lat 9:00a at [place] mensc, current injury, left knee, init S83.222A Prph tear of medial meniscus, current injury, l knee, init M25.562 Pain in left knee Office Visit 03/29/2019 [facility] Sherry M18.0 Bilateral primary 1:00p Orthopedics at [facility] osteoarth of first [place] carpometacarp joints Office Visit 03/11/2019 [facility] Sherry M18.0 Bilateral primary 1:45p Orthopedics at [employer] [facility] [employer] osteoarth of first [place] carpometacarp joints Office Visit 02/08/2019 [facility] Venancio Gonzales, L30.9 Dermatitis, 2:20p unspecified L40.0 Psoriasis vulgaris Office Visit 12/11/2018 3:15p [facility] Vu Bean M54.2 [facility] Aileen M54.5 Low back pain L40.0 Psoriasis vulgaris R42 Dizziness and giddiness Office Visit 11/20/2018 9:30a [facility] Cornel Gomez, M25.462 Effusion, left at [place] knee M22.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, left knee Office Visit 10/30/2018 [facility] Cornel Gomez, M17.12 Unilateral primary 11:30a Orthopedics at osteoarthritis, left [place] knee M25.462 Effusion, left knee Office Visit 10/20/2018 [facility] Arley Arthur, M76.72 Peroneal 3:00p Orthopedics at tendinitis, left [place] leg M25.372 Other instability, left ankle Assessments Date Code Description Provider 04/13/2019 S46.012A Strain of muscle(s) and tendon(s) of the Mickey Kelly MD rotator cuff of left shoulder, initial encounter 03/31/2019 S83.282A Other tear of lateral meniscus, [...] M25.462 Effusion, left knee Cornel Gomez MD 10/20/2018 M76.72 Peroneal tendinitis, left leg Arley Arthur MD 10/20/2018 M25.372 Other instability, left ankle Arley Arthur MD Plan of Treatment Future Appointment(s):06/28/2019 11:30 am - Arley Arthur MD at [facility] at Ibngtr6205/10/2019 1:00 pm - Shanna Douglass M.D. at [facility] at Rlsdox9104/13/2019 - ZACHERY Ryan46.012A Strain of muscle(s ) and tendon(s) of the rotator cuff of left shoulder, initial encounterNew Xrays :MRI Shoulder Left W/O, Ordered: 04/13/19New Therapy:Physical TherapyFollow up: Follow up: 6 weeks after MRI Functional Status Description No Information Available Mental Status Description No Information Available Referrals Description No Information Available
--- OUTSIDE RECORDS SUMMARY | 2019-05-22 10:04 | XMS REPORT | Continuity of Care Document ---
:1970 External Reference #:[id number] Author Name ALINE Ramirez Address [address] [place] [address] Care Team Providers Name Role Phone [facility] - Care Team Information Vice President Fixed Income [phone] [facility] Rehabilitation Care Team Information Vice President Fixed Income [facility] - Physical Therapy Problems Active Problems Provider Date Bipolar disorder Irma Mireles M.D. Onset: 04/24/2015 Localized, primary osteoarthritis Irma Mireles M.D. Onset: 05/10/2015 Cervical spondylosis without myelopathy Russell Crespo M.D. Onset: 11/22/2016 Urinary incontinence Vu Bean M.D. Onset: 06/26/2017 Low back pain Vu Bean M.D. Onset: 06/26/2017 Skin sensation disturbance uV Bean M.D. Onset: 10/06/2017 Amnesia Vu Bean [...] when she was 16 Smoking Status Reviewed: 05/10/19 Light tobacco smoker (10 or fewer cigarettes/day) [...] by mouth once a day 90caps R20.2 Russell Cadena, [address] Aki Jay use for ambulation M25.461 Irma Mireles, 05/10/2015 M.DJustino Fluticasone daily Unknown Propionate 50mcg/Act Suspension Albuterol [...] 6 Oxycodone HCL 1 tabs by 24taarturo Gomez 12/28/2018 - 5mg Tablets mouth every MD 01/12/2019 4-6 hours as needed Cephalexin take 1 by 12taarturo Gomez 12/28/2018 - 500mg Tablets mouth four MD [...] CPT Code Status Date Vaccine Lot # [id number] Given 12/21/2008 Influenza Virus Vaccine, Pandemic Formulation [id number] Given 12/21/2008 Administration Swine Flu Shot Vital Signs Date Vital Result Comment 05/10/2019 12:55pm Height 64 inches 5'4" Weight 150.00 lb Heart Rate 64 /min BP Systolic 104 mmHg BP Diastolic 78 mmHg Respiratory Rate 18 /min Pain Level 9 O2 % BldC Oximetry 98 % BMI (Body Mass Index) 25.7 kg/m2 04/13/2019 9:13am Height 64 inches 5'4" Weight 150.00 lb Heart Rate 94 /min BP Systolic Sitting 108 mmHg BP Diastolic Sitting 72 mmHg Respiratory Rate 18 /min Pain Level 8 O2 % BldC Oximetry 97 % BMI (Body Mass Index) 25.7 kg/m2 Results Description No Information Available Procedures Date Code Description Status 05/10/2019 Inject/Drain Joint/Bursa Small W/O US Completed 05/10/2019 Inject/Drain Joint/Bursa Small W/O US Completed 04/13/2019 Inject/Drain Joint/Bursa Major W/O US Completed 12/28/2018 64264 Arthroscopy,Knee,Meniscectomy Medial Or Lateral Completed 12/28/2018 90429 Arthroscopy,Knee, Synovectomy Plica Or Shelf Resect Completed Medical Devices Description No Information Available Encounters Type Date Location Provider Dx Diagnosis Office Visit 05/10/2019 [facility] Sherry Plasencia, M18.0 Bilateral primary 1:00p at [place] RPA-C osteoarth of first carpometacarp joints Office Visit 04/13/2019 [facility] Mickey Kelly, S46.012A Strain of musc/tend 9:00a at [place] the rotator cuff of left shoulder, init M65.812 Other synovitis and tenosynovitis, left shoulder M25.512 Pain in left shoulder Office Visit 03/31/2019 9:00a [facility] Arley Arthur, S83.282A Oth tear of at [place] lat mensc, current injury, left knee, init S83.222A Prph tear of medial meniscus, current injury, l knee, init M25.562 Pain in left knee Office Visit 03/29/2019 [place] Sherry M18.0 Bilateral primary 1:00p Orthopedics at [facility], RPA-C osteoarth of first [place] carpometacarp joints Office Visit 03/11/2019 [place] Sherry M18.0 Bilateral primary 1:45p Orthopedics at [facility] osteoarth of first [place] carpometacarp joints Office Visit 02/08/2019 [facility] Venancio Gonzales, L30.9 Dermatitis, 2:20p unspecified L40.0 Psoriasis vulgaris Office Visit 12/11/2018 3:15p [facility] Vu Bean, M54.2 [facility] M54.5 Low back pain L40.0 Psoriasis vulgaris R42 Dizziness and giddiness Office Visit 11/20/2018 9:30a [facility] Cornel Gomez, M25.462 Effusion, left at [place] knee M22.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, left knee Assessments Date Code Description Provider 05/10/2019 M18.0 Bilateral primary osteoarthritis of first Sherry Plasencia, RPA-C carpometacarpal joints 04/13/2019 S46.012A Strain of muscle(s) and tendon(s) [...] Chondromalacia patellae, left knee Cornel Gomez MD Plan of Treatment Future Appointment(s):05/11/2019 2:15 pm - Mickey Kelly MD at [facility] at Wjqvld4306/28/2019 11:30 am - Arley Arthur MD at [facility] at Kzetnn3905/10/2019 - Sherry Plasencia RPA-CM18.0 Bilateral primary osteoarthritis of first carpometacarpal jointsFollow up:Follow up: As needed Functional Status Description No Information Available Mental Status Description No Information Available Referrals Description No Information Available
--- OUTSIDE RECORDS SUMMARY | 2019-05-22 10:05 | XMS REPORT | Continuity of Care Document ---
:1970 External Reference #:[id number] Author Name Cornel Gomez MD (transmitted by agent of provider Shanna Nichols) Address [address] 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 Onset: 10/06/2017 Neck pain Vu Baen M.D. Onset: 12/04/2017 Sprain of ankle Cornel Gomez MD Onset: 08/27/2018 Disorder of shoulder Cornel Gomez MD Onset: 10/13/2018 Knee joint effusion Cornel Gomez MD Onset: 10/13/2018 Psoriasis Vu Bean M.D. Onset: 12/11/2018 Dizziness and giddiness Vu Bean M.D. Onset: 12/11/2018 Current tear of lateral cartilage AND/OR Cornel Gomez MD Onset: 01/12/2019 meniscus of knee Chondromalacia of patella Cornel Gomez MD Onset: 01/12/2019 Social History Type Date Description Comments Sex Unknown Tobacco Use Start: Unknown current cigarette smoker ETOH Use Denies alcohol use Recreational Drug Use Former Drug User Tobacco Use Start: Unknown Light tobacco smoker (10 or fewer cigarettes/day) Recreational Drug Use Formerly used Cocaine sporadically Recreational Drug Use Formerly used Crack Cocaine sporadically Recreational Drug Use when she was 16 Smoking Status Reviewed: 03/25/19 Light tobacco smoker (10 or fewer cigarettes/day) Exercise Type/Frequency Does not exercise Allergies, Adverse Reactions, Alerts Active Allergies Reaction Severity Comments Date NKDA 07/19/2013 Bee Stings 07/21/2008 Medications Active Medications SIG Qnty Indications Ordering Provider Date Mobic 1 by mouth every day 30tabs [...] day 6 Oxycodone HCL 1 tabs by 24tabs Cornel Gomez, 12/28/2018 - 5mg Tablets mouth every MD 01/12/2019 4-6 hours as needed Cephalexin take 1 by 12tabs Cornel Gomez, 12/28/2018 - 500mg Tablets mouth four MD 01/12/2019 times a day x 3 days Diclofenac Sodium take 1 tablet 60tabs M17.12 Cornel Gomez, 10/13/2018 - 75mg Tablets twice a day 03/10/2019 DR with food Medications Administered in Office Medication SIG Qnty Indications Ordering Provider Date Triamcinolone (Kenalog) Cornel Gomez MD 10/30/2018 Injection Records Fee Cornel Gomez MD 10/08/2018 Injection Triamcinolone (Kenalog) Chrissy Sexton PA-C 06/05/2018 Injection Immunizations CPT Code Status Date Vaccine Lot # [id number] Given 12/21/2008 Influenza Virus Vaccine, Pandemic Formulation [id number] Given 12/21/2008 Administration Swine Flu Shot Vital Signs Date Vital Result Comment 03/25/2019 10:32am Height 64.5 inches 5'4.50" Weight 152.00 lb Heart Rate 80 /min BP Systolic 100 mmHg BP Diastolic 64 mmHg Respiratory Rate 18 /min Pain Level 8 BMI (Body Mass Index) 25.7 kg/m2 03/11/2019 1:28pm Height 64.5 inches 5'4.50" Weight 152.00 lb Heart Rate 88 /min BP Systolic 122 mmHg BP Diastolic 62 mmHg Respiratory Rate 20 /min Pain Level 9 Bilateral O2 % BldC Oximetry 98 % BMI (Body Mass Index) 25.7 kg/m2 Results Description No Information Available Procedures Date Code Description Status 12/28/2018 09486 Arthroscopy,Knee,Meniscectomy Medial Or Lateral Completed 12/28/2018 60128 Arthroscopy,Knee, Synovectomy Plica Or Shelf Resect Completed 10/30/2018 97772 Inject/Drain Joint/Bursa Major W/O US Completed Medical Devices Description No Information Available Encounters Type Date Location Provider Dx Diagnosis Office Visit 03/11/2019 [facility] Sherry Plasencia, M18.0 Bilateral primary 1:45p at [place] RPA-C osteoarth of first carpometacarp joints Office Visit 02/08/2019 [facility] Venancio Gonzales, L30.9 Dermatitis, 2:20p unspecified L40.0 Psoriasis vulgaris Office Visit 12/11/2018 3:15p [facility] Jelaniophmichelle Bean, M54.2 [facility] Aileen M54.5 Low back pain L40.0 Psoriasis vulgaris R42 Dizziness and giddiness Office Visit 11/20/2018 9:30a [facility] Cornel Gomez, M25.462 Effusion, left at [place] knee M22.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, left knee Office Visit 10/30/2018 [facility] Cornel Gomez, M17.12 Unilateral primary 11:30a Orthopedics at osteoarthritis, left [place] knee M25.462 Effusion, left knee Office Visit 10/20/2018 [facility] Arley Arthur, M76.72 Peroneal 3:00p Orthopedics at tendinitis, left [place] leg M25.372 Other instability, left ankle Office Visit 10/13/2018 [facility] Cornel Gomez, M17.12 Unilateral primary 11:00a Orthopedics at osteoarthritis, left [place] knee M75.42 Impingement syndrome of left shoulder M25.462 Effusion, left knee Assessments Date Code Description Provider 03/25/2019 S83.282D Other tear of lateral meniscus, [...] Other instability, left ankle Arley Arthur MD 10/13/2018 M17.12 Unilateral primary osteoarthritis, left Cornel Gomez MD knee 10/13/2018 M75.42 Impingement syndrome of left shoulder Cornel Gomez MD 10/13/2018 M25.462 Effusion, left knee Cornel Gomez MD Plan of Treatment Future Appointment(s):04/13/2019 9:00 am - Mickey Kelly MD at [facility] at Znawwp6603/31/2019 9:00 am - Arley Arthur MD at [facility] at Hgotjg8603/29/2019 1:00 pm - Shanna Douglass M.D. at [facility] at Bfldwj4503/25/2019 - Cornel Gomez, MDS83.282D Other tear of lateral meniscus, current injury, left knee, subsequent encounterFollow up: Follow up: with [facility] for shoulder in [place] in 2 months for knee or as kzqjmtY88.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, left knee Functional Status Description No Information Available Mental Status Description No Information Available Referrals Description No Information Available
--- OUTSIDE RECORDS SUMMARY | 2019-05-22 10:05 | XMS REPORT | Continuity of Care Document ---
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50" Weight 152.00 lb Heart Rate 80 /min BP Systolic 100 mmHg BP Diastolic 64 mmHg Respiratory Rate 18 /min Pain Level 8 BMI (Body Mass Index) 25.7 kg/m2 Results Description No Information Available Procedures Date Code Description Status 12/28/2018 11605 Arthroscopy,Knee,Meniscectomy Medial Or Lateral Completed 12/28/2018 98392 Arthroscopy,Knee, Synovectomy Plica Or Shelf Resect Completed 10/30/2018 61710 Inject/Drain Joint/Bursa Major W/O US Completed Medical Devices Description No Information Available Encounters Type Date Location Provider Dx Diagnosis Office Visit 03/11/2019 [facility] Sherry Plasencia, M18.0 Bilateral primary 1:45p at [place] RPA-C osteoarth of first carpometacarp joints Office Visit 02/08/2019 [facility] Venancio Eddyshania, L30.9 Dermatitis, 2:20p unspecified L40.0 Psoriasis vulgaris Office Visit 12/11/2018 3:15p [facility] Vu Bean, M54.2 [facility] Aileen M54.5 Low back pain L40.0 Psoriasis vulgaris R42 Dizziness and giddiness Office Visit 11/20/2018 9:30a [facility] Cornel Gomez, M25.462 Effusion, left at [place] knee M22.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, left knee Office Visit 10/30/2018 [place] Cornel Gomez, M17.12 Unilateral primary 11:30a Orthopedics at osteoarthritis, left [place] knee M25.462 Effusion, left knee Office Visit 10/20/2018 [place] Arley Arthur, M76.72 Peroneal 3:00p Orthopedics at tendinitis, left [place] leg M25.372 Other instability, left ankle Office Visit 10/13/2018 [place] Cornel Gomez, M17.12 Unilateral primary 11:00a Orthopedics at osteoarthritis, left [place] knee M75.42 Impingement syndrome of left shoulder M25.462 Effusion, left knee Assessments Date Code Description Provider 03/29/2019 M18.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 at [facility] at Eicnbi9104/13/2019 9:00 am - Mickey Kelly MD at [facility] at Agpvuj0803/31/2019 9:00 am - Arley Arthur MD at [facility] at Csofbo1503/29/2019 - Sherry Plasencia RPA-CM18.0 Bilateral primary osteoarthritis of first carpometacarpal jointsFollow up:Follow up: 4-6 weeks Functional Status Description No Information Available Mental Status Description No Information Available Referrals Description No Information Available
--- OUTSIDE RECORDS SUMMARY | 2019-05-22 10:05 | XMS REPORT | Continuity of Care Document ---
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 Medicine Problems Active Problems Provider Date [...] when she was 16 Smoking Status Reviewed: 03/31/19 Light tobacco smoker (10 or fewer cigarettes/day) [...] CPT Code Status Date Vaccine Lot # [id number] Given 12/21/2008 Influenza Virus Vaccine, Pandemic Formulation [id number] Given 12/21/2008 Administration Swine Flu Shot Vital Signs Date Vital Result Comment 03/31/2019 9:02am Height 64 inches 5'4" Weight 150.00 lb Heart Rate 43 /min BP Systolic 100 mmHg BP Diastolic 62 mmHg Respiratory Rate 16 /min Pain Level 8 BMI (Body Mass Index) 25.7 kg/m2 03/29/2019 12:55pm Height 64.5 inches 5'4.50" Weight 150.00 lb BP Systolic Sitting 118 mmHg BP Diastolic Sitting 68 mmHg Respiratory Rate 14 /min O2 % BldC Oximetry 98 % BMI (Body Mass Index) 25.3 kg/m2 Results Description No Information Available Procedures Date Code Description Status 12/28/2018 68990 Arthroscopy,Knee,Meniscectomy Medial Or Lateral Completed 12/28/2018 77274 Arthroscopy,Knee, Synovectomy Plica Or Shelf Resect Completed 10/30/2018 87281 Inject/Drain Joint/Bursa Major W/O US Completed Medical Devices Description No Information Available Encounters Type Date Location Provider Dx Diagnosis Office Visit 03/11/2019 [facility] Sherry Plasencia, M18.0 Bilateral primary 1:45p at [place] RPA-C osteoarth of first carpometacarp joints Office Visit 02/08/2019 [facility] Venancio Eddyshania, L30.9 Dermatitis, 2:20p unspecified L40.0 Psoriasis vulgaris Office Visit 12/11/2018 3:15p [facility] Vu Bean, M54.2 [facility] Aileen M54.5 Low back pain L40.0 Psoriasis vulgaris R42 Dizziness and giddiness Office Visit 11/20/2018 9:30a [facility] Cornel Gomez, M25.462 Effusion, left at [place] knee M22.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, left knee Office Visit 10/30/2018 [facility] Gomez, M17.12 Unilateral primary 11:30a Orthopedics at osteoarthritis, left [place] knee M25.462 Effusion, left knee Office Visit 10/20/2018 [facility] Arley Arthur, M76.72 Peroneal 3:00p Orthopedics at tendinitis, left [place] leg M25.372 Other instability, left ankle Office Visit 10/13/2018 [facility] Gomez, M17.12 Unilateral primary 11:00a Orthopedics at osteoarthritis, left [place] knee M75.42 Impingement syndrome of left shoulder M25.462 Effusion, left knee Assessments Date Code Description Provider 03/31/2019 S83.282A Other tear of lateral meniscus, current Arley Arthur MD injury, left knee, initial encounter 03/29/2019 M18.0 Bilateral primary osteoarthritis of first [...] Cornel Gomez MD Plan of Treatment Future Appointment(s):06/28/2019 11:30 am - Arley Arthur MD at [facility] at Brbyan9705/10/2019 1:00 pm - Shanna Douglass M.D. at [facility] at Pehnuz9704/13/2019 9:00 am - Mickey Kelly MD at [facility] at Qcdutj9803/31/2019 - Arley Arthur, MDS83.282A Other tear of lateral meniscus, current injury, left knee, initial encounterFollow up:Follow Up: 3 months Functional Status Description No Information Available Mental Status Description No Information Available Referrals Description No Information Available
--- NOTE | 2019-05-22 10:28 | ED ---
Upper Extremity Pain - HPI Summary HPI Summary: Pt. is a 49 y.o who presents to the ER for a right wrist injury that occurred today at work. Pt. states he was lifting a heavy bag into the garbage when she felt a "pop" in her right wrist and developed pain. Pt. notes tingling in hand that is improving. Sxs are mild in severity. Moving wrist makes sxs worse. Rest improves pain. - History of Current Complaint Chief Complaint: EDExtremityUpper Stated Complaint: RT WRIST INJ PER PT Time Seen by Provider: 05/22/19 10:10 Hx Obtained From: Patient Hx Last Menstrual Period: 200 days - Allergies/Home Medications Allergies/Adverse Reactions: Allergies Allergy/AdvReac Type Severity Reaction Status Date / Time bee venom protein (honey bee) Allergy Anaphylatic Verified 05/22/19 09:55 Shock SPINE STIMULATOR AdvReac HAS A Uncoded 12/28/18 08:[address] Home Medications: Home Medications Cetirizine* [ZyrTEC 10 MG TAB*] 10 mg PO QAM #0 08/06/13 [History Confirmed ] Morphine TAB Extended Rel(*) [Ms Contin(*)] 15 mg PO BID 01/19/15 [History Confirmed 12/28/18] Gabapentin TAB(NF) [Neurontin 600 mg TAB(NF)] 600 mg PO TID 09/13/16 [History Confirmed 12/28/18] Albuterol 2.5MG/3ML (0.083%)* [Ventolin 2.5 MG/3 ML NEB.KARINA*] 1 dose INH Q6H PRN 01/20/17 [History Confirmed 12/28/18] Albuterol HFA INHALER* [Ventolin HFA Inhaler*] 2 puff INH Q4H PRN 01/20/17 [ History Confirmed 12/28/18] Cholecalciferol (Vitamin D3) [Vitamin D] 2,000 unit PO QAM 01/20/17 [History Confirmed 12/28/18] Methotrexate TAB* 5 tab PO TH 01/20/17 [History Confirmed 12/28/18] DULoxetine CAP* [Cymbalta CAP*] 30 mg PO QAM 03/07/17 [History Confirmed ] Fluticasone/Vilanterol [Breo Ellipta 200-25 Mcg INH] 1 puff INH QAM 05/18/17 [ History Confirmed 12/28/18] Meclizine TAB* [Antivert 12.5 TAB*] 25 mg PO TID 05/18/17 [History Confirmed ] Adalimumab (NF) [Humira Pen (NF)] 40 mg SUBCUT Q14D 12/23/18 [History Confirmed 12/28/18] Diclofenac Sodium EC TAB* [Voltaren EC TAB*] 50 mg PO TID 12/23/18 [History Confirmed 12/28/18] PMH/Surg Hx/FS Hx/Imm Hx Previously Healthy: Yes Endocrine/Hematology History: Denies: Hx Anticoagulant Therapy, Hx Diabetes, Hx Thyroid Disease Cardiovascular History: Denies: Hx Congestive Heart Failure, Hx Deep Vein Thrombosis, Hx Hypertension , Hx Myocardial Infarction, Hx Pacemaker/ICD, Other Cardiovascular Problems/ Disorders Respiratory History: Reports: Hx Asthma - COLD INDUCED, Hx Chronic Obstructive Pulmonary Disease (COPD), Other Respiratory Problems/Disorders - COPD Denies: Hx Lung Cancer, Hx Pneumonia, Hx Pulmonary Embolism GI History: Denies: Hx Gall Bladder Disease, Hx Gastrointestinal Bleed, Hx Hiatal Hernia , Hx Ulcer, Hx Urosepsis, Other GI Disorders History: Denies: Hx Dialysis, Hx Kidney Stones, Hx Renal Disease, Other Problems/ Disorders Musculoskeletal History: Reports: Hx Arthritis, Hx Back Problems, Hx Scoliosis, Other Musculoskeletal History - BONE SPUR-NECK Sensory History: Reports: Hx Contacts or Glasses - DRIVING Denies: Hx Hearing Aid Opthamlomology History: Reports: Hx Contacts or Glasses - DRIVING Neurological History: Reports: Hx Headaches, Other Neuro Impairments/Disorders - PAIN CLINIC PT Denies: Hx Dementia, Hx Migraine, Hx Seizures, Hx Transient Ischemic Attacks (TIA) Psychiatric History: Reports: Hx Anxiety, Hx Depression, Hx Bipolar Disorder Denies: Hx Panic Disorder, Hx Schizophrenia - Cancer History Hx Chemotherapy: No Hx Radiation Therapy: No - Surgical History Surgery Procedure, Year, and Place: HERNIA REPAIR,CARPAL TUNNEL RT HAND, LUMBAR SPINE NERVE STIMULATOR(INFORMATION SCANNED INTO CHART//NORMAL MODE-STIMULATOR OFF-T/R HEAD COIL ONLY). LEFT KNEE SCOPE 01/2019 Hx Anesthesia Reactions: No - Immunization History Date of Tetanus Vaccine: utd Date of Influenza Vaccine: 11/11/15 Infectious Disease History: No Infectious Disease History: Denies: Hx Clostridium Difficile, Hx Hepatitis, Hx Human Immunodeficiency Virus (HIV), Hx of Known/Suspected MRSA, Hx Shingles, Hx Tuberculosis, Hx Known/ Suspected VRE, Hx Known/Suspected VRSA, History Other Infectious Disease, Traveled Outside the [place] in Last 30 Days - Family History Known Family History: Positive: Cardiac Disease, Hypertension, Diabetes, Non- Contributory - Social History Occupation: Employed Full-time Lives: With Family Alcohol Use: None Substance Use Type: Reports: None Substance Use Comment - Amount & Last Used: morphine , oxycodone Smoking Status (MU): Light Every Day Tobacco Smoker Type: Cigarettes Amount Used/How Often: 1/4 PPD Length of Time of Smoking/Using Tobacco: 30 YEARS Have You Smoked in the Last Year: Yes Review of Systems Positive: Other - Pain to right wrist Skin: Negative Positive: Paresthesia All Other Systems Reviewed And Are Negative: Yes Physical Exam Triage Information Reviewed: Yes Vital Signs On Initial Exam: Initial Vitals Temp Pulse Resp BP Pulse Ox 99.4 F 86 16 149/88 99 05/22/19 09:52 05/22/19 09:52 05/22/19 09:52 05/22/19 09:52 05/22/19 09:52 Vital Signs Reviewed: Yes Appearance: Positive: Well-Appearing - Pt. sitting on bed in NAD. Skin: Positive: Warm, Dry Head/Face: Positive: Normal Head/Face Inspection Eyes: Positive: Normal, EOMI Neck: Positive: Supple Musculoskeletal: Positive: Other - Good right radial pulse. Mild edema and pain to distal right radial region. No pain over digits or hand. ROM and strength to digits. No elbow tenderness. Neurological: Positive: Normal, CN Intact II-III Psychiatric: Positive: Affect/Mood Appropriate Procedures - Sedation Patient Received Moderate/Deep Sedation with Procedure: No Diagnostics - Vital Signs Vital Signs Temp Pulse Resp BP Pulse Ox 05/22/19 09:52 99.4 F 86 16 149/88 99 - Laboratory Lab Statement: Any lab studies that have been ordered have been reviewed, and results considered in the medical decision making process. Course/Dx - Course Course Of Treatment: Pt. with right wrist injury. Tylenol and ice pack given for pain. Xray shows chronic changes without acute findings per radiology. Velcro wrist splint given. To ice and elevate and rest. Will f.u with PCP or ortho if pain persist. - Diagnoses Differential Diagnosis/HQI/PQRI: Positive: Fracture (Closed), Hematoma, Strain, Sprain Provider Diagnoses: Wrist sprain Discharge ED - Sign-Out/Discharge Documenting (check all that apply): Patient Departure - Discharge Plan Condition: Good Disposition: HOME Patient Education Materials: Wrist Sprain (ED) Referrals: Juan Alberto Koenig PA [Primary Care Provider] - Shanna Douglass MD [Medical Doctor] - Additional Instructions: Follow up with PCP or orthopedics if pain persist Ice and elevate Tylenol for pain as directed Wear splint for comfort Return to ER if symptoms change or worsen - Billing Disposition and Condition Condition: GOOD Disposition: Home - Attestation Statements Provider Attestation: I was available for consult. This patient was seen by the JANIE. The patient was not presented to, seen by, or examined by me. Ritesh Benitez MD
[2019-05-22] MEDS ORDERED: Acetaminophen TAB* 325 MG PO ONE (10:33)
[2019-05-22 11:30] VITALS: BP 122/81
== END 2019-05-22 11:25 | disposition home or self-care (01) ==
LOC: ED 09:46
DX: S63.501A Unspecified sprain of right wrist, initial encounter (principal); X50.0XXA Overexertion from strenuous movement or load, initial encounter; Y92.9 Unspecified place or not applicable; Z79.899 Other long term (current) drug therapy; J44.9 Chronic obstructive pulmonary disease, unspecified; F41.9 Anxiety disorder, unspecified; F32.9 Major depressive disorder, single episode, unspecified; F17.210 Nicotine dependence, cigarettes, uncomplicated; R20.2 Paresthesia of skin
CPT/HCPCS: 99282; A9270-GY